=== PATIENT | male | born 1950 | race Caucasian/White ===

== ENCOUNTER 2023-12-18 17:58 | Emergency (ER) | payer MEDICARE, MEDICAID ==
[~2023-12-18] VITALS: Ht 167.6 cm; Wt 59.0 kg
[2023-12-18] MEDS ORDERED: KETOROLAC TROMETHAMINE INJ 30 MG/ML VIAL ONE (18:24)
[2023-12-18] MEDS ORDERED: LIDOCAINE HCL/PF 1% 30 ML SDV ONE (18:24)
[2023-12-18] MEDS: KETOROLAC TROMETHAMINE INJ 30 MG/ML VIAL IM ONE (18:45)
[2023-12-18] MEDS: LIDOCAINE HCL/PF 1% 30 ML VIAL TP ONE (18:50)
[2023-12-18] MEDS ORDERED: CEPH-570 PO (19:28)
[2023-12-18 22:21] VITALS: BP 140/76; TEMP 98.8; O2SAT 98
== END 2023-12-18 22:22 ==
LOC: ER 18:01
DX: L02.511 Cutaneous abscess of right hand (principal); L03.011 Cellulitis of right finger; I10 Essential (primary) hypertension; E11.9 Type 2 diabetes mellitus without complications; N40.0 Benign prostatic hyperplasia without lower urinary tract symptoms; F32.A Depression, unspecified; D64.9 Anemia, unspecified; E78.5 Hyperlipidemia, unspecified; E03.9 Hypothyroidism, unspecified
CPT/HCPCS: 26010; 73130; 96372; 99283; A6403; J1885; J3490

== ENCOUNTER 2024-03-10 13:14 | Emergency (ER) | payer MEDICARE, MEDICAID ==
[~2024-03-10] VITALS: Ht 167.6 cm; Wt 65.8 kg
[~2024-03-10 13:14] MED LIST: CEPH-570 PO
[2024-03-10] MEDS ORDERED: ONDANSETRON 4 MG TAB.RAPDIS SL ONE (14:30)
[2024-03-10] MEDS ORDERED: ONDANSETRON HCL/PF 4 MG/2 ML VIAL ONE (14:31)
[2024-03-10] MEDS: ONDANSETRON HCL/PF - ER 4 MG/2 ML VIAL IV ONE (14:45)
[2024-03-10] MEDS: DICYCLOMINE HCL 10 MG/5 ML UDC PO ONE (15:00)
[2024-03-10 15:04] LABS: APPEARANCE,URINE CLEAR (CLEAR); BILIRUBIN,URINE NEGATIVE (NEGATIVE); BLOOD, URINE NEGATIVE Ery/uL (NEGATIVE); COLOR,URINE YELLOW (YELLOW); KETONES,URINE NEGATIVE (NEGATIVE); LEUKOCYTE ESTERASE ,URINE NEGATIVE (NEGATIVE); NITRITE, URINE NEGATIVE (NEGATIVE); PROTEIN,URINE 2+ mg/dl (NEGATIVE); UGLUCOSE NEGATIVE (NEGATIVE); UROBILINOGEN,URINE 0.2 EU/dL (0.2)
[2024-03-10 15:05] LABS: BASOPHILS % (AUTO) 0.5 % (0.0-2.0); EOSINOPHILS # (AUTO) 0.4 K/uL (0.0-0.7); EOSINOPHILS % (AUTO) 4.4 % (0.0-6.0); HEMATOCRIT 39 % (39-51); HEMOGLOBIN 12.9 g/dL (13.5-17.5); LYMPHOCYTES # (AUTO) 1.6 K/uL (0.8-4.8); LYMPHOCYTES % (AUTO) 18.9 % (20.0-44.0); MEAN CORPUSCULAR HEMOGLOBIN 30 PG (26.0-33.0); MEAN CORPUSCULAR HGB CONC 33 g/dl (31.0-36.0); MEAN CORPUSCULAR VOLUME 91 fL (80-96); MONOCYTES # (AUTO) 0.9 K/uL (0.1-1.30); MONOCYTES % (AUTO) 10.4 % (2.0-12.0); NEUTROPHILS # (AUTO) 5.7 K/uL (1.8-8.9); NEUTROPHILS % (AUTO) 65.8 % (43.0-81.0); PLATELET COUNT (AUTO) 229 K/uL (150-450); RED BLOOD CELL COUNT(AUTO) 4.29 MIL/uL (4.5-6.0); WHITE BLOOD COUNT (AUTO) 8.7 K/uL (4.3-11.0)
[2024-03-10 15:07] LABS: ADD URINE CULTURE NO; BACTERIA,URINE Few /HPF (None Seen); HYALINE CASTS, URINE Few /LPF (None Seen); RBC,URINE 0-2 /HPF (0-2); SQUAMOUS EPITHELIAL CELL,UR None Seen /HPF (None Seen); WBC,URINE 0-2 /HPF (0-3)
[2024-03-10 15:31] LABS: CALCIUM, SERUM 8.9 mg/dL (8.5-10.1); CARBON DIOXIDE 25 mmol/L (21-32); CHLORIDE 105 mmol/L (98-107); GLUCOSE 125 mg/dL (74-106); SODIUM SERUM 136 mmol/L (136-145); UREA NITROGEN, BLOOD 30 mg/dL (7-18)
[2024-03-10 15:37] LABS: ALANINE AMINOTRANSFERASE 37 U/L (12-78); ALBUMIN 4.2 g/dL (3.4-5.0); ALKALINE PHOSPHATASE 123 U/L (46-116); ASPARTATE AMINOTRANSFERASE 24 U/L (15-37); BILIRUBIN,DIRECT 0.1 mg/dL (0.0-0.2); BILIRUBIN,TOTAL 0.3 mg/dL (0.2-1.0); LIPASE 135 U/L (16-77); TOTAL PROTEIN, SERUM 8.1 g/dL (6.4-8.2)
[2024-03-10 18:23] VITALS: BP 145/88; TEMP 98.3; O2SAT 97
== END 2024-03-10 18:53 ==
LOC: ER 13:20
DX: R10.84 Generalized abdominal pain (principal); R15.9 Full incontinence of feces; M79.672 Pain in left foot; E03.9 Hypothyroidism, unspecified; E11.9 Type 2 diabetes mellitus without complications; E78.5 Hyperlipidemia, unspecified; I10 Essential (primary) hypertension; K21.9 Gastro-esophageal reflux disease without esophagitis; N26.1 Atrophy of kidney (terminal); N40.1 Benign prostatic hyperplasia with lower urinary tract symptoms; F32.A Depression, unspecified
CPT/HCPCS: 99285; 74176; 96374; 73630; 85025; 80048; 83690; 80076; 81001; 36415; J2405

== ENCOUNTER 2024-05-18 13:46 | Inpatient (IN) | payer MEDICARE, OTHER ==
[~2024-05-18] VITALS: Ht 157.5 cm; Wt 75.3 kg
[2024-05-18] MEDS ORDERED: KETOROLAC TROMETHAMINE INJ 30 MG/ML VIAL ONE (15:43)
[2024-05-18] MEDS: KETOROLAC TROMETHAMINE INJ 30 MG/ML VIAL IM ONE (15:48)
[2024-05-18 16:52] LABS: APPEARANCE,URINE CLEAR (CLEAR); BILIRUBIN,URINE NEGATIVE (NEGATIVE); BLOOD, URINE NEGATIVE Ery/uL (NEGATIVE); COLOR,URINE YELLOW (YELLOW); KETONES,URINE NEGATIVE (NEGATIVE); LEUKOCYTE ESTERASE ,URINE NEGATIVE (NEGATIVE); NITRITE, URINE NEGATIVE (NEGATIVE); PH,URINE 6.5 (5.0-8.0); PROTEIN,URINE 2+ mg/dl (NEGATIVE); UGLUCOSE NEGATIVE (NEGATIVE); UROBILINOGEN,URINE 0.2 EU/dL (0.2)
[2024-05-18 16:56] LABS: ADD URINE CULTURE NO; BACTERIA,URINE None seen /HPF (None Seen); MUCUS,URINE Few /LPF (None Seen); RBC,URINE 0-2 /HPF (0-2); SQUAMOUS EPITHELIAL CELL,UR 0-2 /HPF (None Seen); WBC,URINE 0-2 /HPF (0-3)
[2024-05-18] MEDS ORDERED: TRAZ-182 PO (17:52)
[2024-05-18] MEDS ORDERED: MELA5TAB PO (17:52)
[2024-05-18] MEDS ORDERED: SERT50TA12 PO (17:52)
[2024-05-18] MEDS ORDERED: GABA-536 PO (17:52)
[2024-05-18] MEDS ORDERED: LORA-259 PO (17:52)
[2024-05-18] MEDS ORDERED: GLIP5TAB13 PO (17:52)
[2024-05-18] MEDS ORDERED: LEVO50TA8 PO (17:52)
[2024-05-18] MEDS ORDERED: ACET-73 PO (17:52)
[2024-05-18] MEDS ORDERED: ATOR20TA PO (17:52)
[2024-05-18] MEDS ORDERED: FOLI0.8T3 PO (17:52)
[2024-05-18] MEDS ORDERED: ONDANSETRON HCL/PF 4 MG/2 ML VIAL ONE (17:52)
[2024-05-18] MEDS ORDERED: TAMS-12 PO (17:52)
[2024-05-18] MEDS ORDERED: ZOLP5TAB8 PO (17:52)
[2024-05-18] MEDS ORDERED: HYDR-500 PO (17:52)
[2024-05-18] MEDS ORDERED: INSU100I30 SQ (17:52)
[2024-05-18] MEDS ORDERED: TRAM50TA2 PO (17:52)
[2024-05-18] MEDS ORDERED: AMLO-212 PO (17:52)
[2024-05-18] MEDS ORDERED: BUSP7.5T7 PO (17:52)
[2024-05-18] MEDS ORDERED: MORPHINE SULFATE INJ 4 MG/ML DISP.SYRIN ONE (17:53)
[2024-05-18] MEDS: ONDANSETRON HCL/PF 4 MG/2 ML VIAL IVP ONE (17:56)
[2024-05-18] MEDS: MORPHINE SULFATE INJ 2 MG/ML DISP.SYRIN IV ONE (17:57)
[2024-05-18 18:00] LABS: BASOPHILS % (AUTO) 0.4 % (0.0-2.0); EOSINOPHILS # (AUTO) 0.3 K/uL (0.0-0.7); EOSINOPHILS % (AUTO) 3.6 % (0.0-6.0); HEMATOCRIT 38 % (39-51); HEMOGLOBIN 12.9 g/dL (13.5-17.5); LYMPHOCYTES # (AUTO) 1.8 K/uL (0.8-4.8); LYMPHOCYTES % (AUTO) 23.8 % (20.0-44.0); MEAN CORPUSCULAR HEMOGLOBIN 30 PG (26.0-33.0); MEAN CORPUSCULAR HGB CONC 34 g/dl (31.0-36.0); MEAN CORPUSCULAR VOLUME 89 fL (80-96); MONOCYTES # (AUTO) 0.7 K/uL (0.1-1.30); MONOCYTES % (AUTO) 8.8 % (2.0-12.0); NEUTROPHILS # (AUTO) 4.7 K/uL (1.8-8.9); NEUTROPHILS % (AUTO) 63.4 % (43.0-81.0); PLATELET COUNT (AUTO) 176 K/uL (150-450); RED BLOOD CELL COUNT(AUTO) 4.25 MIL/uL (4.5-6.0); RED CELL DISTRIBUTION WIDTH 14.7 % (11.5-15.0); WHITE BLOOD COUNT (AUTO) 7.4 K/uL (4.3-11.0)
[2024-05-18 18:22] LABS: CALCIUM, SERUM 9.4 mg/dL (8.5-10.1); CREATININE 1.7 mg/dL (0.6-1.3); POTASSIUM 4.2 mmol/L (3.5-5.1)
[2024-05-18 18:30] LABS: PARTIAL THROMBOPLASTIN TIME 26.2 SEC (24.3-34.3); PROTHROMBIN TIME 10.6 SECS (9.2-11.1)
[2024-05-18] MEDS ORDERED: ONDANSETRON HCL/PF 4 MG/2 ML VIAL IVP PRN (20:00)
[2024-05-18] MEDS ORDERED: MAG HYDROX/AL HYDROX/SIMETH 30 ML UDC PO PRN (20:00)
[2024-05-18] MEDS ORDERED: MAGNESIUM HYDROXIDE 30 ML UDC PO PRN (20:00)
[2024-05-18] MEDS ORDERED: ACETAMINOPHEN 325 MG TABLET PO PRN (20:00)
[2024-05-18] MEDS ORDERED: DEXTROSE 50%-WATER 50 ML DISP.SYRIN IV PRN (20:30)
[2024-05-18 21:00] VITALS: BP 158/93; TEMP 98.2; O2SAT 95
[2024-05-18] MEDS: MORPHINE SULFATE INJ 2 MG/ML DISP.SYRIN IV PRN (22:04)
[2024-05-18] MEDS: BLOOD SUGAR DIAGNOSTIC 1 EACH STRIP IN SCH (22:20)
[2024-05-18] MEDS: INSULIN REGULAR, HUMAN 100 UNIT/ML 3 ML VIAL SQ PRN (22:23)
[2024-05-19] VITALS: BP 137/91; TEMP 98.2; O2SAT 94
[2024-05-19 04:00] VITALS: BP 138/90; TEMP 98.2; O2SAT 95
[2024-05-19 07:00] LABS: BASOPHILS % (AUTO) 0.6 % (0.0-2.0); EOSINOPHILS # (AUTO) 0.4 K/uL (0.0-0.7); EOSINOPHILS % (AUTO) 6.7 % (0.0-6.0); HEMATOCRIT 36 % (39-51); HEMOGLOBIN 12.2 g/dL (13.5-17.5); LYMPHOCYTES # (AUTO) 1.5 K/uL (0.8-4.8); LYMPHOCYTES % (AUTO) 25.7 % (20.0-44.0); MEAN CORPUSCULAR HEMOGLOBIN 30 PG (26.0-33.0); MEAN CORPUSCULAR HGB CONC 34 g/dl (31.0-36.0); MEAN CORPUSCULAR VOLUME 89 fL (80-96); MONOCYTES # (AUTO) 0.7 K/uL (0.1-1.30); MONOCYTES % (AUTO) 11.2 % (2.0-12.0); NEUTROPHILS # (AUTO) 3.4 K/uL (1.8-8.9); NEUTROPHILS % (AUTO) 55.8 % (43.0-81.0); PLATELET COUNT (AUTO) 173 K/uL (150-450); RED BLOOD CELL COUNT(AUTO) 4.08 MIL/uL (4.5-6.0); RED CELL DISTRIBUTION WIDTH 14.8 % (11.5-15.0)
[2024-05-19 07:44] LABS: CALCIUM, SERUM 9.1 mg/dL (8.5-10.1); CREATININE 1.5 mg/dL (0.6-1.3); MAGNESIUM 2.2 mg/dL (1.8-2.4); PHOSPHORUS 3.1 mg/dL (2.5-4.9); POTASSIUM 3.8 mmol/L (3.5-5.1)
[2024-05-19] MEDS: PANTOPRAZOLE 40 MG VIAL IV SCH (08:30)
[2024-05-19 08:38] VITALS: BP 161/86; TEMP 98.1; O2SAT 95
[2024-05-19] MEDS ORDERED: PANTOPRAZOLE 40 MG VIAL IV SCH (09:00)
[2024-05-19 09:11] LABS: THYROID STIMULATING HORMONE 4.69 uIU/mL (0.358-3.74)
[2024-05-19] MEDS: HYDROCODONE/APAP 5/325MG TABLET PO PRN (09:33)
[2024-05-19 12:00] VITALS: BP 161/86; TEMP 98.1; O2SAT 95
[2024-05-19 16:00] VITALS: BP 170/83; TEMP 98; O2SAT 95
[2024-05-19] MEDS ORDERED: LORAZEPAM 1 MG TABLET PO PRN (16:00)
[2024-05-19] MEDS ORDERED: ACETAMINOPHEN ES 500 MG TABLET PO PRN (16:00)
[2024-05-19] MEDS ORDERED: ZOLPIDEM TARTRATE 5 MG TABLET PO PRN (16:00)
[2024-05-19] MEDS ORDERED: TRAMADOL HCL 50 MG TABLET PO PRN (16:00)
[2024-05-19] MEDS: AMLODIPINE BESYLATE 5 MG TABLET PO SCH (16:11)
[2024-05-19] MEDS: busPIRone 5 MG TABLET PO SCH (16:11)
[2024-05-19] MEDS ORDERED: hydrOXYzine 10 MG TABLET PO PRN (16:30)
[2024-05-19] MEDS: hydrALAZINE HCL 25 MG TABLET PO PRN (16:45)
[2024-05-19] MEDS ORDERED: hydrALAZINE HCL 25 MG TABLET PO SCH (18:00)
[2024-05-19 20:00] VITALS: BP 184/85; TEMP 97.3; O2SAT 95
[2024-05-19] MEDS: ATORVASTATIN 10 MG TABLET PO SCH (21:41)
[2024-05-19] MEDS: TRAZODONE 50 MG TABLET PO SCH (21:41)
[2024-05-19] MEDS ORDERED: Medication Not On Formulary EA (Melatonin 5 MG) PO SCH (22:00)
[2024-05-20 04:00] VITALS: BP 130/90; TEMP 97.3; O2SAT 94
[2024-05-20 07:05] LABS: BASOPHILS % (AUTO) 0.5 % (0.0-2.0); EOSINOPHILS # (AUTO) 0.5 K/uL (0.0-0.7); HEMATOCRIT 34 % (39-51); HEMOGLOBIN 11.7 g/dL (13.5-17.5); LYMPHOCYTES # (AUTO) 1.5 K/uL (0.8-4.8); LYMPHOCYTES % (AUTO) 21.2 % (20.0-44.0); MEAN CORPUSCULAR HEMOGLOBIN 30 PG (26.0-33.0); MEAN CORPUSCULAR HGB CONC 34 g/dl (31.0-36.0); MEAN CORPUSCULAR VOLUME 88 fL (80-96); MONOCYTES # (AUTO) 0.9 K/uL (0.1-1.30); NEUTROPHILS # (AUTO) 4.3 K/uL (1.8-8.9); NEUTROPHILS % (AUTO) 59.3 % (43.0-81.0); PLATELET COUNT (AUTO) 181 K/uL (150-450); RED BLOOD CELL COUNT(AUTO) 3.88 MIL/uL (4.5-6.0); RED CELL DISTRIBUTION WIDTH 14.5 % (11.5-15.0); WHITE BLOOD COUNT (AUTO) 7.2 K/uL (4.3-11.0)
[2024-05-20 07:40] LABS: CALCIUM, SERUM 8.9 mg/dL (8.5-10.1); CREATININE 1.5 mg/dL (0.6-1.3); POTASSIUM 3.8 mmol/L (3.5-5.1)
[2024-05-20] MEDS: GABAPENTIN 400 MG CAPSULE PO SCH (08:35)
[2024-05-20] MEDS: LEVOTHYROXINE SODIUM 50 MCG TABLET PO SCH (08:35)
[2024-05-20] MEDS: glipiZIDE 5 MG TABLET PO SCH (08:36)
[2024-05-20] MEDS: TAMSULOSIN 0.4 MG CAP.SR.24H PO SCH (08:36)
[2024-05-20] MEDS: FOLIC ACID 1 MG TABLET PO SCH (08:36)
[2024-05-20] MEDS: SERTRALINE HCL 50 MG TABLET PO SCH (08:36)
[2024-05-20] MEDS: INSULIN GLARGINE, 100 UNIT/ML CARTRIDGE SQ SCH (08:37)
[2024-05-20 09:27] LABS: MAGNESIUM 2.2 mg/dL (1.8-2.4); PHOSPHORUS 3.9 mg/dL (2.5-4.9)
[2024-05-20 12:11] VITALS: BP 136/83; TEMP 98; O2SAT 95
[2024-05-21] MEDS ORDERED: PANTOPRAZOLE 40 MG TABLET.DR PO SCH (09:00)
== END 2024-05-20 17:25 | DRG 542 ==
LOC: ER 13:51 → MEDSG1 20:26
PROVIDERS: ATTEND Nurse Practitioner Acute Care
DX: M48.54XA Collapsed vertebra, not elsewhere classified, thoracic region, initial encounter for fracture (principal); N17.0 Acute kidney failure with tubular necrosis; D68.59 Other primary thrombophilia; I12.9 Hypertensive chronic kidney disease with stage 1 through stage 4 chronic kidney disease, or unspecified chronic kidney disease; N18.9 Chronic kidney disease, unspecified; E11.22 Type 2 diabetes mellitus with diabetic chronic kidney disease; E03.9 Hypothyroidism, unspecified; Z79.4 Long term (current) use of insulin; D64.9 Anemia, unspecified; E78.5 Hyperlipidemia, unspecified; G89.29 Other chronic pain; F32.A Depression, unspecified; E66.01 Morbid (severe) obesity due to excess calories; N40.0 Benign prostatic hyperplasia without lower urinary tract symptoms; F41.9 Anxiety disorder, unspecified; Z79.890 Hormone replacement therapy; Z79.899 Other long term (current) drug therapy; Z79.84 Long term (current) use of oral hypoglycemic drugs; M48.04 Spinal stenosis, thoracic region
CPT/HCPCS: 36415; 72131-TC; 80048-TC; 81001; 82962-TC; 83735-TC; 84100-TC; 84439-TC; 84443-TC; 85025-TC; 85730-TC; 87081-TC; 97110-TC; 97116-TC; 97530-TC; G0378; J1815; J1885; J2270; J2405; J2470; J7030

== ENCOUNTER 2024-09-17 19:26 | Inpatient (IN) | payer MEDICARE, OTHER ==
[~2024-09-17] VITALS: Ht 157.5 cm; Wt 78.0 kg
[~2024-09-17 19:26] MED LIST changes: +ACET-73 PO; +AMLO-212 PO; +ATOR20TA PO; +BUSP7.5T7 PO; -CEPH-570 PO; +FOLI0.8T3 PO; +GABA-536 PO; +GLIP5TAB13 PO; +HYDR-500 PO; +INSU100I30 SQ; +LEVO50TA8 PO; +LORA-259 PO; +MELA5TAB PO; +SERT50TA12 PO; +TAMS-12 PO; +TRAM50TA2 PO; +TRAZ-182 PO; +ZOLP5TAB8 PO
[2024-09-17] MEDS ORDERED: LIDOCAINE 5% (PATCH) 1 EA PATCH TP ONE (19:58)
[2024-09-17] MEDS ORDERED: KETOROLAC TROMETHAMINE 15 MG/ML VIAL ONE (19:58)
[2024-09-17] MEDS ORDERED: METHOCARBAMOL (500MG) 500 MG TABLET ONE (19:59)
[2024-09-17 20:02] LABS: BASOPHILS # (AUTO) 0.1 K/uL (0.0-0.2); BASOPHILS % (AUTO) 0.7 % (0.0-2.0); EOSINOPHILS # (AUTO) 0.4 K/uL (0.0-0.7); EOSINOPHILS % (AUTO) 4.9 % (0.0-6.0); HEMATOCRIT 39 % (39-51); HEMOGLOBIN 13.1 g/dL (13.5-17.5); LYMPHOCYTES # (AUTO) 2.1 K/uL (0.8-4.8); LYMPHOCYTES % (AUTO) 24.1 % (20.0-44.0); MEAN CORPUSCULAR HEMOGLOBIN 29 PG (26.0-33.0); MEAN CORPUSCULAR HGB CONC 34 g/dl (31.0-36.0); MEAN CORPUSCULAR VOLUME 87 fL (80-96); MONOCYTES # (AUTO) 0.8 K/uL (0.1-1.30); NEUTROPHILS # (AUTO) 5.3 K/uL (1.8-8.9); NEUTROPHILS % (AUTO) 61.3 % (43.0-81.0); PLATELET COUNT (AUTO) 233 K/uL (150-450); RED BLOOD CELL COUNT(AUTO) 4.47 MIL/uL (4.5-6.0); WHITE BLOOD COUNT (AUTO) 8.7 K/uL (4.3-11.0)
[2024-09-17 20:16] LABS: CREATININE 1.9 mg/dL (0.6-1.3); POTASSIUM 3.9 mmol/L (3.5-5.1)
[2024-09-17 20:22] LABS: ALBUMIN 4.1 g/dL (3.4-5.0); BILIRUBIN,DIRECT 0.1 mg/dL (0.0-0.2); BILIRUBIN,TOTAL 0.3 mg/dL (0.2-1.0); TOTAL PROTEIN, SERUM 7.7 g/dL (6.4-8.2)
[2024-09-17] MEDS: IV NS 0.9% 1,000 ML BAG IV ONE (20:28)
[2024-09-17] MEDS: LIDOCAINE 5% (PATCH) 1 EA PATCH TP SCH (20:29)
[2024-09-17] MEDS: METHOCARBAMOL (750MG) 750 MG TABLET PO SCH (20:29)
[2024-09-17] MEDS: KETOROLAC TROMETHAMINE 15 MG/ML VIAL IV ONE (20:29)
[2024-09-17] MEDS ORDERED: MORPHINE SULFATE INJ 2 MG/ML DISP.SYRIN ONE (21:17)
[2024-09-17] MEDS: MORPHINE SULFATE INJ 2 MG/ML DISP.SYRIN IV ONE (21:23)
[2024-09-17] MEDS ORDERED: LORAZEPAM 1 MG TABLET PO PRN (23:00)
[2024-09-17] MEDS ORDERED: MAGNESIUM HYDROXIDE 30 ML UDC PO PRN (23:00)
[2024-09-17] MEDS ORDERED: ACETAMINOPHEN 325 MG TABLET PO PRN (23:00)
[2024-09-17 23:30] VITALS: BP 161/97; TEMP 97.9; O2SAT 98
[2024-09-17] MEDS ORDERED: DEXTROSE 50%-WATER 50 ML DISP.SYRIN IV PRN (23:30)
[2024-09-18] MEDS: BLOOD SUGAR DIAGNOSTIC 1 EACH STRIP VI SCH (00:01)
[2024-09-18] MEDS: INSULIN GLARGINE, 100 UNIT/ML CARTRIDGE SQ SCH (00:03)
[2024-09-18 06:34] LABS: BASOPHILS # (AUTO) 0.1 K/uL (0.0-0.2); BASOPHILS % (AUTO) 0.7 % (0.0-2.0); EOSINOPHILS # (AUTO) 0.6 K/uL (0.0-0.7); EOSINOPHILS % (AUTO) 7.8 % (0.0-6.0); HEMATOCRIT 39 % (39-51); HEMOGLOBIN 13.1 g/dL (13.5-17.5); LYMPHOCYTES # (AUTO) 2.4 K/uL (0.8-4.8); LYMPHOCYTES % (AUTO) 31.5 % (20.0-44.0); MEAN CORPUSCULAR HEMOGLOBIN 29 PG (26.0-33.0); MEAN CORPUSCULAR HGB CONC 34 g/dl (31.0-36.0); MEAN CORPUSCULAR VOLUME 87 fL (80-96); MONOCYTES # (AUTO) 0.9 K/uL (0.1-1.30); MONOCYTES % (AUTO) 11.3 % (2.0-12.0); NEUTROPHILS # (AUTO) 3.7 K/uL (1.8-8.9); NEUTROPHILS % (AUTO) 48.7 % (43.0-81.0); PLATELET COUNT (AUTO) 231 K/uL (150-450); RED BLOOD CELL COUNT(AUTO) 4.46 MIL/uL (4.5-6.0); RED CELL DISTRIBUTION WIDTH 14.3 % (11.5-15.0); WHITE BLOOD COUNT (AUTO) 7.6 K/uL (4.3-11.0)
[2024-09-18] MEDS: INSULIN REGULAR, HUMAN 100 UNIT/ML 3 ML VIAL SQ PRN (06:40)
[2024-09-18 06:57] LABS: BILIRUBIN,TOTAL 0.3 mg/dL (0.2-1.0); CALCIUM, SERUM 8.8 mg/dL (8.5-10.1); CREATININE 1.5 mg/dL (0.6-1.3); MAGNESIUM 2.4 mg/dL (1.8-2.4); PHOSPHORUS 3.4 mg/dL (2.5-4.9); POTASSIUM 3.8 mmol/L (3.5-5.1); TOTAL PROTEIN, SERUM 7.8 g/dL (6.4-8.2)
[2024-09-18 07:30] VITALS: BP 132/95; TEMP 97.5; O2SAT 96
[2024-09-18 07:49] VITALS: BP 132/95; TEMP 97.5; O2SAT 96
[2024-09-18] MEDS: LEVOTHYROXINE SODIUM 50 MCG TABLET PO SCH (08:01)
[2024-09-18] MEDS: MORPHINE SULFATE INJ 2 MG/ML DISP.SYRIN IV PRN (08:03)
[2024-09-18] MEDS ORDERED: QUET25TA PO (08:17)
[2024-09-18] MEDS ORDERED: ERGO500093 PO (08:17)
[2024-09-18] MEDS ORDERED: TIZA-180 PO (08:17)
[2024-09-18] MEDS ORDERED: AMLO-213 PO (08:17)
[2024-09-18] MEDS ORDERED: BUSP10TA3 PO (08:17)
[2024-09-18] MEDS ORDERED: POLY17PO4 PO (08:17)
[2024-09-18] MEDS ORDERED: ACET325T53 PO (08:17)
[2024-09-18] MEDS ORDERED: DICL100G34 TP (08:17)
[2024-09-18] MEDS ORDERED: SENN8.6T19 PO (08:17)
[2024-09-18] MEDS ORDERED: ENOX40DI SQ (08:17)
[2024-09-18] MEDS ORDERED: CALC200V NS (08:17)
[2024-09-18] MEDS ORDERED: CLON0.1T PO (08:17)
[2024-09-18] MEDS ORDERED: HYDR-4303 PO (08:17)
[2024-09-18] MEDS: busPIRone 5 MG TABLET PO SCH ×2 (08:43→16:28)
[2024-09-18] MEDS: DOCUSATE SODIUM LIQ 100 MG/10 ML UDC PO SCH (08:43)
[2024-09-18] MEDS: GABAPENTIN 400 MG CAPSULE PO SCH (08:43)
[2024-09-18] MEDS: AMLODIPINE BESYLATE 5 MG TABLET PO SCH (08:44)
[2024-09-18] MEDS: TAMSULOSIN 0.4 MG CAP.SR.24H PO SCH (08:44)
[2024-09-18] MEDS: SERTRALINE HCL 50 MG TABLET PO SCH (08:44)
[2024-09-18] MEDS: HEPARIN SODIUM, PORCINE 5000 UNITS/1 ML VIAL SQ SCH (08:48)
[2024-09-18] MEDS: POLYETHYLENE GLYCOL 3350 17 GM POWD.PACK PO SCH (08:57)
[2024-09-18] MEDS ORDERED: ACETAMINOPHEN 325 MG TABLET PO PRN (13:00)
[2024-09-18] MEDS ORDERED: CLONIDINE HCL 0.1 MG TABLET PO PRN (13:00)
[2024-09-18] MEDS ORDERED: busPIRone HCL 10 MG TABLET PO SCH (13:00)
[2024-09-18] MEDS ORDERED: ZOLPIDEM TARTRATE 5 MG TABLET PO PRN (13:00)
[2024-09-18] MEDS ORDERED: hydrOXYzine 10 MG TABLET PO PRN (14:00)
[2024-09-18 16:00] VITALS: BP 159/84; TEMP 98.1; O2SAT 94
[2024-09-18] MEDS: SENNOSIDES 8.6 MG TABLET PO SCH (16:28)
[2024-09-18] MEDS: QUETIAPINE FUMARATE 25 MG TABLET PO SCH (16:28)
[2024-09-18] MEDS: TIZANIDINE HCL 4 MG TABLET PO PRN (16:39)
[2024-09-18 20:00] VITALS: BP 145/87; TEMP 98.1; O2SAT 97
[2024-09-18] MEDS: ATORVASTATIN 10 MG TABLET PO SCH (21:32)
[2024-09-18] MEDS: TRAZODONE 50 MG TABLET PO SCH (21:32)
[2024-09-18] MEDS: *INSULIN REGULAR(HUMULIN R)HUM 100 UNIT/ML VIAL SQ PRN (21:54)
[2024-09-19 06:20] LABS: BASOPHILS % (AUTO) 0.2 % (0.0-2.0); EOSINOPHILS # (AUTO) 0.5 K/uL (0.0-0.7); EOSINOPHILS % (AUTO) 4.9 % (0.0-6.0); HEMATOCRIT 43 % (39-51); HEMOGLOBIN 14.4 g/dL (13.5-17.5); LYMPHOCYTES # (AUTO) 1.8 K/uL (0.8-4.8); LYMPHOCYTES % (AUTO) 17.3 % (20.0-44.0); MEAN CORPUSCULAR HEMOGLOBIN 29 PG (26.0-33.0); MEAN CORPUSCULAR HGB CONC 33 g/dl (31.0-36.0); MEAN CORPUSCULAR VOLUME 87 fL (80-96); MONOCYTES # (AUTO) 1.2 K/uL (0.1-1.30); NEUTROPHILS % (AUTO) 66.6 % (43.0-81.0); PLATELET COUNT (AUTO) 233 K/uL (150-450); RED CELL DISTRIBUTION WIDTH 14.1 % (11.5-15.0); WHITE BLOOD COUNT (AUTO) 10.6 K/uL (4.3-11.0)
[2024-09-19 06:49] LABS: CALCIUM, SERUM 9.2 mg/dL (8.5-10.1); CREATININE 1.5 mg/dL (0.6-1.3); MAGNESIUM 2.4 mg/dL (1.8-2.4); PHOSPHORUS 3.8 mg/dL (2.5-4.9); POTASSIUM 3.8 mmol/L (3.5-5.1)
[2024-09-19 08:00] VITALS: BP 149/85; TEMP 97.9; O2SAT 95
[2024-09-19] MEDS: FOLIC ACID 1 MG TABLET PO SCH (09:18)
[2024-09-19] MEDS: AMLODIPINE BESYLATE 10 MG TABLET PO SCH (09:19)
[2024-09-19] MEDS: POLYETHYLENE GLYCOL 3350 17 GM POWD.PACK PO SCH (09:20)
[2024-09-19] MEDS: INSULIN GLARGINE, 100 UNIT/ML CARTRIDGE SQ SCH (09:22)
[2024-09-19 13:49] LABS: APPEARANCE,URINE CLEAR (CLEAR); BILIRUBIN,URINE NEGATIVE (NEGATIVE); BLOOD, URINE NEGATIVE Ery/uL (NEGATIVE); COLOR,URINE YELLOW (YELLOW); KETONES,URINE NEGATIVE (NEGATIVE); LEUKOCYTE ESTERASE ,URINE NEGATIVE (NEGATIVE); NITRITE, URINE NEGATIVE (NEGATIVE); PROTEIN,URINE 2+ mg/dl (NEGATIVE); UGLUCOSE NEGATIVE (NEGATIVE); UROBILINOGEN,URINE 0.2 EU/dL (0.2)
[2024-09-19 13:51] LABS: CREATININE, URINE 144.1 MG/DL (30.0-125.0); URINE TOTAL PROTEIN 142.3 mg/dL (0-11.9)
[2024-09-19 14:05] LABS: ADD URINE CULTURE YES; BACTERIA,URINE 2+ /HPF (None Seen); RBC,URINE 0-2 /HPF (0-2); SQUAMOUS EPITHELIAL CELL,UR 0-2 /HPF (None Seen); WBC,URINE 0-2 /HPF (0-3)
[2024-09-19 16:00] VITALS: BP 114/77; TEMP 97.9; O2SAT 95
[2024-09-19 16:16] LABS: EOSINOPHIL,URINE None Seen; SPERM,URINE Moderate /HPF (None Seen)
[2024-09-19] MEDS: ACETAMINOPHEN 325 MG TABLET PO SCH (20:24)
[2024-09-19] MEDS: ONDANSETRON HCL/PF 4 MG/2 ML VIAL IVP PRN (20:51)
[2024-09-19 21:33] VITALS: BP 162/95; TEMP 98.8; O2SAT 92
[2024-09-20 06:34] LABS: BASOPHILS % (AUTO) 0.2 % (0.0-2.0); EOSINOPHILS # (AUTO) 0.4 K/uL (0.0-0.7); EOSINOPHILS % (AUTO) 3.9 % (0.0-6.0); HEMATOCRIT 39 % (39-51); HEMOGLOBIN 12.8 g/dL (13.5-17.5); LYMPHOCYTES # (AUTO) 2.1 K/uL (0.8-4.8); LYMPHOCYTES % (AUTO) 23.5 % (20.0-44.0); MEAN CORPUSCULAR HEMOGLOBIN 28 PG (26.0-33.0); MEAN CORPUSCULAR HGB CONC 32 g/dl (31.0-36.0); MEAN CORPUSCULAR VOLUME 87 fL (80-96); MONOCYTES # (AUTO) 1.1 K/uL (0.1-1.30); MONOCYTES % (AUTO) 11.8 % (2.0-12.0); NEUTROPHILS # (AUTO) 5.5 K/uL (1.8-8.9); NEUTROPHILS % (AUTO) 60.6 % (43.0-81.0); PLATELET COUNT (AUTO) 213 K/uL (150-450); RED BLOOD CELL COUNT(AUTO) 4.51 MIL/uL (4.5-6.0); RED CELL DISTRIBUTION WIDTH 13.9 % (11.5-15.0); WHITE BLOOD COUNT (AUTO) 9.1 K/uL (4.3-11.0)
[2024-09-20 07:11] LABS: ALBUMIN 3.9 g/dL (3.4-5.0); BILIRUBIN,TOTAL 0.5 mg/dL (0.2-1.0); CREATININE 1.8 mg/dL (0.6-1.3); MAGNESIUM 2.6 mg/dL (1.8-2.4); PHOSPHORUS 3.6 mg/dL (2.5-4.9); POTASSIUM 4.1 mmol/L (3.5-5.1); TOTAL PROTEIN, SERUM 7.9 g/dL (6.4-8.2)
[2024-09-20 08:00] VITALS: BP 149/81; TEMP 97.5; O2SAT 95
[2024-09-20 16:00] VITALS: BP 104/62; TEMP 97.5; O2SAT 95
[2024-09-20 20:00] VITALS: BP 94/56; TEMP 97.8; O2SAT 93
[2024-09-20] MEDS: MUPIROCIN OINT 2% 22 GM TUBE NS SCH (21:00)
[2024-09-21 06:46] LABS: BASOPHILS % (AUTO) 0.2 % (0.0-2.0); EOSINOPHILS # (AUTO) 0.6 K/uL (0.0-0.7); EOSINOPHILS % (AUTO) 7.5 % (0.0-6.0); HEMATOCRIT 38 % (39-51); HEMOGLOBIN 12.8 g/dL (13.5-17.5); LYMPHOCYTES # (AUTO) 1.4 K/uL (0.8-4.8); LYMPHOCYTES % (AUTO) 19.1 % (20.0-44.0); MEAN CORPUSCULAR HEMOGLOBIN 29 PG (26.0-33.0); MEAN CORPUSCULAR HGB CONC 33 g/dl (31.0-36.0); MEAN CORPUSCULAR VOLUME 87 fL (80-96); MONOCYTES # (AUTO) 0.8 K/uL (0.1-1.30); MONOCYTES % (AUTO) 10.2 % (2.0-12.0); NEUTROPHILS # (AUTO) 4.7 K/uL (1.8-8.9); PLATELET COUNT (AUTO) 206 K/uL (150-450); RED BLOOD CELL COUNT(AUTO) 4.38 MIL/uL (4.5-6.0); RED CELL DISTRIBUTION WIDTH 14.2 % (11.5-15.0); WHITE BLOOD COUNT (AUTO) 7.5 K/uL (4.3-11.0)
[2024-09-21 07:22] LABS: CALCIUM, SERUM 9.1 mg/dL (8.5-10.1); CREATININE 1.8 mg/dL (0.6-1.3); MAGNESIUM 2.6 mg/dL (1.8-2.4); PHOSPHORUS 2.9 mg/dL (2.5-4.9); POTASSIUM 3.8 mmol/L (3.5-5.1)
[2024-09-21 08:00] VITALS: BP 136/74; TEMP 98.3; O2SAT 95
[2024-09-21 13:07] LABS: PTH, INTACT 74 pg/mL (15-65)
[2024-09-21 16:00] VITALS: BP 141/73; TEMP 97.9; O2SAT 97
[2024-09-21 20:00] VITALS: BP 157/82; TEMP 98.1; O2SAT 97
[2024-09-22 08:00] VITALS: BP 159/95; TEMP 97.5; O2SAT 98
[2024-09-22 11:22] LABS: BASOPHILS % (AUTO) 0.6 % (0.0-2.0); EOSINOPHILS # (AUTO) 0.5 K/uL (0.0-0.7); EOSINOPHILS % (AUTO) 6.5 % (0.0-6.0); HEMATOCRIT 39 % (39-51); HEMOGLOBIN 12.9 g/dL (13.5-17.5); LYMPHOCYTES # (AUTO) 1.7 K/uL (0.8-4.8); LYMPHOCYTES % (AUTO) 23.5 % (20.0-44.0); MEAN CORPUSCULAR HEMOGLOBIN 29 PG (26.0-33.0); MEAN CORPUSCULAR HGB CONC 34 g/dl (31.0-36.0); MEAN CORPUSCULAR VOLUME 87 fL (80-96); MONOCYTES # (AUTO) 0.8 K/uL (0.1-1.30); MONOCYTES % (AUTO) 11.2 % (2.0-12.0); NEUTROPHILS # (AUTO) 4.2 K/uL (1.8-8.9); NEUTROPHILS % (AUTO) 58.2 % (43.0-81.0); PLATELET COUNT (AUTO) 228 K/uL (150-450); RED BLOOD CELL COUNT(AUTO) 4.45 MIL/uL (4.5-6.0); RED CELL DISTRIBUTION WIDTH 14.3 % (11.5-15.0); WHITE BLOOD COUNT (AUTO) 7.2 K/uL (4.3-11.0)
[2024-09-22 11:45] LABS: CALCIUM, SERUM 9.2 mg/dL (8.5-10.1); CREATININE 1.6 mg/dL (0.6-1.3); MAGNESIUM 2.5 mg/dL (1.8-2.4); PHOSPHORUS 2.2 mg/dL (2.5-4.9)
[2024-09-22 16:00] VITALS: BP 156/69; TEMP 98.2; O2SAT 93
[2024-09-22] MEDS: K PHOS NEUTRAL 250 MG TABLET PO ONE (16:04)
[2024-09-22 20:00] VITALS: BP 145/84; TEMP 98.1; O2SAT 95
[2024-09-23 07:00] VITALS: BP 163/98; TEMP 97.5; O2SAT 97
[2024-09-23 16:00] VITALS: BP 146/81; TEMP 98.1; O2SAT 95
[2024-09-23 20:00] VITALS: BP 137/76; TEMP 97.9; O2SAT 95
[2024-09-23 20:23] LABS: BASOPHILS # (AUTO) 0.1 K/uL (0.0-0.2); BASOPHILS % (AUTO) 1.2 % (0.0-2.0); EOSINOPHILS # (AUTO) 0.5 K/uL (0.0-0.7); EOSINOPHILS % (AUTO) 6.7 % (0.0-6.0); HEMATOCRIT 39 % (39-51); HEMOGLOBIN 12.7 g/dL (13.5-17.5); LYMPHOCYTES # (AUTO) 1.8 K/uL (0.8-4.8); LYMPHOCYTES % (AUTO) 24.1 % (20.0-44.0); MEAN CORPUSCULAR HEMOGLOBIN 29 PG (26.0-33.0); MEAN CORPUSCULAR HGB CONC 33 g/dl (31.0-36.0); MEAN CORPUSCULAR VOLUME 89 fL (80-96); MONOCYTES # (AUTO) 0.8 K/uL (0.1-1.30); MONOCYTES % (AUTO) 11.1 % (2.0-12.0); NEUTROPHILS # (AUTO) 4.2 K/uL (1.8-8.9); NEUTROPHILS % (AUTO) 56.9 % (43.0-81.0); PLATELET COUNT (AUTO) 222 K/uL (150-450); RED BLOOD CELL COUNT(AUTO) 4.38 MIL/uL (4.5-6.0); RED CELL DISTRIBUTION WIDTH 14.3 % (11.5-15.0); WHITE BLOOD COUNT (AUTO) 7.4 K/uL (4.3-11.0)
[2024-09-23 21:06] LABS: CALCIUM, SERUM 8.8 mg/dL (8.5-10.1); CREATININE 1.6 mg/dL (0.6-1.3); MAGNESIUM 2.5 mg/dL (1.8-2.4); PHOSPHORUS 3.5 mg/dL (2.5-4.9); POTASSIUM 3.9 mmol/L (3.5-5.1)
[2024-09-24 07:00] VITALS: BP 167/88; TEMP 97.5; O2SAT 96
[2024-09-24 16:00] VITALS: BP 113/72; TEMP 98.1; O2SAT 95
[2024-09-24 16:18] LABS: INR 0.98 (0.91-1.10); PARTIAL THROMBOPLASTIN TIME 26.5 SEC (24.3-34.3); PROTHROMBIN TIME 10.4 SECS (9.2-11.1)
[2024-09-24 20:00] VITALS: BP_SYST 156; BP_SYST 163; BP_DIAS 82; BP_DIAS 84; TEMP 98.2; O2SAT 96
[2024-09-24] MEDS: Potassium Chloride 20 MEQ in IV NS 0.9% 1,000 ML IV PRN (23:41)
[2024-09-25 06:07] LABS: *SPE ALBUMIN 3.4 g/dL (2.9-4.4); *SPE ALPHA-1-GLOBULIN 0.3 g/dL (0.0-0.4); *SPE ALPHA-2-GLOBULIN 0.9 g/dL (0.4-1.0); *SPE BETA GLOBULIN 1.3 g/dL (0.7-1.3); *SPE GLOBULIN, TOTAL 3.4 g/dL (2.2-3.9); *SPE M-SPIKE Not Observed g/dL (Not Observed); *SPE PROTEIN TOTAL 6.8 g/dL (6.0-8.5); *SPEGAMMA GLOBULIN 0.9 g/dL (0.4-1.8)
[2024-09-25] MEDS ORDERED: ANESTHESIA TRAY IN PYXIS 1 EA TRAY MC ONE ×2 (07:55→17:55)
[2024-09-25] MEDS ORDERED: HEMOSTATIC MATRIX 8 ML 1 EACH PAD MC ONE (07:55)
[2024-09-25] MEDS ORDERED: LIDOCAINE 0.5%-EPI 1:200,000 50 ML VIAL ONE (07:56)
[2024-09-25] MEDS ORDERED: CEFAZOLIN 1 GM ONE (07:56)
[2024-09-25] MEDS ORDERED: TRIAMCINOLONE ACETONIDE SUSP 40 MG/ML 1 ML ONE (07:56)
[2024-09-25 08:00] VITALS: BP 151/77; TEMP 97.9; O2SAT 97
[2024-09-25 08:55] LABS: BASOPHILS # (AUTO) 0.1 K/uL (0.0-0.2); BASOPHILS % (AUTO) 0.7 % (0.0-2.0); EOSINOPHILS # (AUTO) 0.4 K/uL (0.0-0.7); EOSINOPHILS % (AUTO) 6.2 % (0.0-6.0); HEMATOCRIT 39 % (39-51); LYMPHOCYTES # (AUTO) 1.7 K/uL (0.8-4.8); LYMPHOCYTES % (AUTO) 23.1 % (20.0-44.0); MEAN CORPUSCULAR HEMOGLOBIN 29 PG (26.0-33.0); MEAN CORPUSCULAR HGB CONC 33 g/dl (31.0-36.0); MEAN CORPUSCULAR VOLUME 87 fL (80-96); MONOCYTES # (AUTO) 0.7 K/uL (0.1-1.30); MONOCYTES % (AUTO) 10.2 % (2.0-12.0); NEUTROPHILS # (AUTO) 4.3 K/uL (1.8-8.9); NEUTROPHILS % (AUTO) 59.8 % (43.0-81.0); PLATELET COUNT (AUTO) 230 K/uL (150-450); RED BLOOD CELL COUNT(AUTO) 4.47 MIL/uL (4.5-6.0); RED CELL DISTRIBUTION WIDTH 13.9 % (11.5-15.0); WHITE BLOOD COUNT (AUTO) 7.2 K/uL (4.3-11.0)
[2024-09-25 09:01] LABS: CALCIUM, SERUM 8.8 mg/dL (8.5-10.1); CREATININE 1.6 mg/dL (0.6-1.3); POTASSIUM 4.2 mmol/L (3.5-5.1)
[2024-09-25] MEDS ORDERED: ALBUMIN 5% 500 ML IV ONE (14:09)
[2024-09-25] MEDS ORDERED: LIDOCAINE 2% JEL UROJET 10 ML MM ONE (14:09)
[2024-09-25] MEDS ORDERED: Magnesium 1 GM/2 ML VIAL ONE ×2 (14:10→15:53)
[2024-09-25] MEDS ORDERED: HYDROMORPHONE INJ 2 MG/ML DISP.SYRIN ONE (14:10)
[2024-09-25] MEDS ORDERED: FAMOTIDINE/PF INJ 20 MG/2 ML VIAL IV ONE (14:10)
[2024-09-25] MEDS ORDERED: FENTANYL PF 100MCG/2ML AMPUL ONE (14:10)
[2024-09-25] MEDS ORDERED: BUPIVACAINE MPF W/EPI 0.25% 30 ML VIAL ONE (14:22)
[2024-09-25] MEDS ORDERED: PROPOFOL 100 ML ONE (15:37)
[2024-09-25] MEDS ORDERED: LABETALOL HCL IV 100MG VIAL ONE (15:56)
[2024-09-25] MEDS ORDERED: Potassium Chloride 20 MEQ in IV NS 0.9% 1,000 ML IV SCH (16:00)
[2024-09-25] MEDS ORDERED: HYDROMORPHONE 1 MG/1 ML DISP.SYRIN ONE (19:59)
[2024-09-25 20:00] VITALS: BP 149/97; TEMP 97.9; O2SAT 96
[2024-09-25] MEDS ORDERED: ONDANSETRON HCL/PF 4 MG/2 ML VIAL IVP PRN (20:00)
[2024-09-25 20:40] VITALS: BP 134/103; TEMP 97.2; O2SAT 94
[2024-09-25] MEDS: Potassium Chloride 20 MEQ in IV NS 0.9% 1,000 ML IV SCH (21:16)
[2024-09-25 22:00] VITALS: BP 159/91; TEMP 98; O2SAT 95
[2024-09-25] MEDS ORDERED: BISACODYL SUPP (10 MG) 10 MG/SUPP.RECT SUPP.RECT RC PRN (22:00)
[2024-09-25] MEDS: ANCEF 1 GM/50 ML D5W IV SCH (22:43)
[2024-09-26] MEDS: oxyCODONE/APAP (5/325 MG) 1 UDTAB TABLET PO PRN (02:33)
[2024-09-26] MEDS: ACETAMINOPHEN ES 500 MG TABLET PO PRN (07:48)
[2024-09-26 08:00] VITALS: BP 176/103; TEMP 99.3; O2SAT 93
[2024-09-26] MEDS: dexaMETHasone SOD PHOSPHATE 10 MG/ML VIAL IV SCH (09:03)
[2024-09-26] MEDS: CYCLOBENZAPRINE 10 MG TABLET PO PRN (09:30)
[2024-09-26] MEDS: HYDROCODONE/APAP 5/325MG TABLET PO PRN (09:43)
[2024-09-26 16:00] VITALS: BP 156/81; TEMP 98.1; O2SAT 94
[2024-09-26 16:13] VITALS: TEMP 98.1
[2024-09-26 20:00] VITALS: BP 144/98; TEMP 98.1; O2SAT 95
[2024-09-26 22:00] VITALS: BP 144/98; TEMP 98.1; O2SAT 95
[2024-09-27] VITALS: BP 144/98; TEMP 98.1; O2SAT 95
[2024-09-27 04:00] VITALS: BP 144/84; TEMP 97.7; O2SAT 96
[2024-09-27 07:54] LABS: CALCIUM, SERUM 8.7 mg/dL (8.5-10.1); CREATININE 1.5 mg/dL (0.6-1.3); POTASSIUM 4.7 mmol/L (3.5-5.1)
[2024-09-27 08:00] VITALS: BP 117/79; TEMP 98.4; O2SAT 95
[2024-09-27 08:02] VITALS: BP 117/79; TEMP 98.4; O2SAT 95
[2024-09-27 08:09] LABS: BASOPHILS % (AUTO) 0.3 % (0.0-2.0); EOSINOPHILS % (AUTO) 0.1 % (0.0-6.0); HEMATOCRIT 36 % (39-51); HEMOGLOBIN 11.1 g/dL (13.5-17.5); LYMPHOCYTES # (AUTO) 1.1 K/uL (0.8-4.8); LYMPHOCYTES % (AUTO) 7.3 % (20.0-44.0); MEAN CORPUSCULAR HEMOGLOBIN 28 PG (26.0-33.0); MEAN CORPUSCULAR HGB CONC 31 g/dl (31.0-36.0); MEAN CORPUSCULAR VOLUME 92 fL (80-96); MONOCYTES # (AUTO) 1.2 K/uL (0.1-1.30); MONOCYTES % (AUTO) 8.3 % (2.0-12.0); NEUTROPHILS # (AUTO) 12.2 K/uL (1.8-8.9); PLATELET COUNT (AUTO) 198 K/uL (150-450); RED BLOOD CELL COUNT(AUTO) 3.91 MIL/uL (4.5-6.0); RED CELL DISTRIBUTION WIDTH 15.2 % (11.5-15.0); WHITE BLOOD COUNT (AUTO) 14.5 K/uL (4.3-11.0)
[2024-09-27] MEDS: HEPARIN SODIUM, PORCINE 5000 UNITS/1 ML VIAL SQ SCH (09:31)
[2024-09-27] MEDS ORDERED: CYCLOBENZAPRINE 10 MG TABLET PO PRN (11:00)
[2024-09-27 16:00] VITALS: BP 149/73; TEMP 97.9; O2SAT 96
[2024-09-27 20:00] VITALS: BP_SYST 142; BP_SYST 148; BP_DIAS 88; TEMP 98.4; O2SAT 94
[2024-09-28 06:27] LABS: BASOPHILS # (AUTO) 0.1 K/uL (0.0-0.2); BASOPHILS % (AUTO) 0.7 % (0.0-2.0); EOSINOPHILS # (AUTO) 0.2 K/uL (0.0-0.7); EOSINOPHILS % (AUTO) 2.1 % (0.0-6.0); HEMATOCRIT 35 % (39-51); HEMOGLOBIN 11.7 g/dL (13.5-17.5); LYMPHOCYTES # (AUTO) 2.3 K/uL (0.8-4.8); LYMPHOCYTES % (AUTO) 22.2 % (20.0-44.0); MEAN CORPUSCULAR HEMOGLOBIN 29 PG (26.0-33.0); MEAN CORPUSCULAR HGB CONC 34 g/dl (31.0-36.0); MEAN CORPUSCULAR VOLUME 88 fL (80-96); MONOCYTES # (AUTO) 1.1 K/uL (0.1-1.30); MONOCYTES % (AUTO) 10.8 % (2.0-12.0); NEUTROPHILS # (AUTO) 6.7 K/uL (1.8-8.9); NEUTROPHILS % (AUTO) 64.2 % (43.0-81.0); PLATELET COUNT (AUTO) 214 K/uL (150-450); RED BLOOD CELL COUNT(AUTO) 3.96 MIL/uL (4.5-6.0); RED CELL DISTRIBUTION WIDTH 14.4 % (11.5-15.0); WHITE BLOOD COUNT (AUTO) 10.4 K/uL (4.3-11.0)
[2024-09-28 06:42] LABS: CALCIUM, SERUM 9.1 mg/dL (8.5-10.1); CREATININE 1.6 mg/dL (0.6-1.3)
[2024-09-28 07:00] VITALS: BP 158/81; TEMP 97.3; O2SAT 96
[2024-09-28 16:00] VITALS: BP 152/87; TEMP 97.9; O2SAT 94
[2024-09-28 20:00] VITALS: BP 127/83; TEMP 98.7; O2SAT 93
[2024-09-28 20:26] VITALS: BP 127/83; TEMP 98.7; O2SAT 93
[2024-09-29 06:58] LABS: BASOPHILS % (AUTO) 0.3 % (0.0-2.0); EOSINOPHILS # (AUTO) 0.4 K/uL (0.0-0.7); EOSINOPHILS % (AUTO) 3.7 % (0.0-6.0); HEMATOCRIT 39 % (39-51); HEMOGLOBIN 12.7 g/dL (13.5-17.5); LYMPHOCYTES # (AUTO) 2.2 K/uL (0.8-4.8); LYMPHOCYTES % (AUTO) 19.2 % (20.0-44.0); MEAN CORPUSCULAR HEMOGLOBIN 28 PG (26.0-33.0); MEAN CORPUSCULAR HGB CONC 32 g/dl (31.0-36.0); MEAN CORPUSCULAR VOLUME 87 fL (80-96); MONOCYTES # (AUTO) 1.3 K/uL (0.1-1.30); MONOCYTES % (AUTO) 10.8 % (2.0-12.0); NEUTROPHILS # (AUTO) 7.7 K/uL (1.8-8.9); PLATELET COUNT (AUTO) 227 K/uL (150-450); RED BLOOD CELL COUNT(AUTO) 4.49 MIL/uL (4.5-6.0); RED CELL DISTRIBUTION WIDTH 14.4 % (11.5-15.0); WHITE BLOOD COUNT (AUTO) 11.6 K/uL (4.3-11.0)
[2024-09-29 07:45] LABS: CALCIUM, SERUM 9.5 mg/dL (8.5-10.1); CREATININE 1.6 mg/dL (0.6-1.3); POTASSIUM 4.3 mmol/L (3.5-5.1)
[2024-09-29 08:00] VITALS: BP 165/88; TEMP 98.4; O2SAT 94
[2024-09-29 16:00] VITALS: BP 152/78; TEMP 99.5; O2SAT 94
[2024-09-29 20:00] VITALS: BP 142/86; TEMP 97.9; O2SAT 94
[2024-09-30 06:27] LABS: CALCIUM, SERUM 9.3 mg/dL (8.5-10.1); CREATININE 1.8 mg/dL (0.6-1.3)
[2024-09-30 06:47] LABS: BASOPHILS % (AUTO) 0.2 % (0.0-2.0); EOSINOPHILS # (AUTO) 0.6 K/uL (0.0-0.7); EOSINOPHILS % (AUTO) 4.4 % (0.0-6.0); HEMATOCRIT 38 % (39-51); HEMOGLOBIN 12.1 g/dL (13.5-17.5); LYMPHOCYTES # (AUTO) 2.1 K/uL (0.8-4.8); LYMPHOCYTES % (AUTO) 16.4 % (20.0-44.0); MEAN CORPUSCULAR HEMOGLOBIN 28 PG (26.0-33.0); MEAN CORPUSCULAR HGB CONC 32 g/dl (31.0-36.0); MEAN CORPUSCULAR VOLUME 87 fL (80-96); MONOCYTES # (AUTO) 1.3 K/uL (0.1-1.30); MONOCYTES % (AUTO) 10.3 % (2.0-12.0); NEUTROPHILS # (AUTO) 8.7 K/uL (1.8-8.9); NEUTROPHILS % (AUTO) 68.7 % (43.0-81.0); PLATELET COUNT (AUTO) 244 K/uL (150-450); WHITE BLOOD COUNT (AUTO) 12.7 K/uL (4.3-11.0)
[2024-09-30 08:00] VITALS: BP 97/85; TEMP 98.6; O2SAT 95
[2024-09-30 16:00] VITALS: BP 137/75; TEMP 98.2; O2SAT 95
[2024-09-30 21:07] VITALS: BP 127/77; TEMP 98.6; O2SAT 94
[2024-10-01 06:43] LABS: BASOPHILS % (AUTO) 0.4 % (0.0-2.0); EOSINOPHILS # (AUTO) 0.8 K/uL (0.0-0.7); EOSINOPHILS % (AUTO) 7.2 % (0.0-6.0); HEMATOCRIT 34 % (39-51); HEMOGLOBIN 11.5 g/dL (13.5-17.5); LYMPHOCYTES # (AUTO) 2.7 K/uL (0.8-4.8); LYMPHOCYTES % (AUTO) 25.1 % (20.0-44.0); MEAN CORPUSCULAR HEMOGLOBIN 29 PG (26.0-33.0); MEAN CORPUSCULAR HGB CONC 34 g/dl (31.0-36.0); MEAN CORPUSCULAR VOLUME 87 fL (80-96); MONOCYTES # (AUTO) 1.2 K/uL (0.1-1.30); NEUTROPHILS # (AUTO) 6.1 K/uL (1.8-8.9); NEUTROPHILS % (AUTO) 56.3 % (43.0-81.0); PLATELET COUNT (AUTO) 253 K/uL (150-450); RED CELL DISTRIBUTION WIDTH 14.1 % (11.5-15.0); WHITE BLOOD COUNT (AUTO) 10.8 K/uL (4.3-11.0)
[2024-10-01 07:02] LABS: CALCIUM, SERUM 8.3 mg/dL (8.5-10.1); CREATININE 1.7 mg/dL (0.6-1.3); POTASSIUM 3.6 mmol/L (3.5-5.1)
[2024-10-01 08:00] VITALS: BP 130/73; TEMP 97.3; O2SAT 96
[2024-10-01 08:57] VITALS: BP 130/73
[2024-10-01] MEDS ORDERED: HEPA50008 SQ (09:52)
== END 2024-10-01 17:15 | disposition home health service (06) | DRG 447 ==
LOC: ER 19:31 → MED 22:02
PROVIDERS: ADMIT Internal Medicine; ATTEND Internal Medicine
PROC: 0RG Upper Joints, Fusion (ICD-10-PCS; principal; 2024-09-26)
PROC: 0RG Upper Joints, Fusion (ICD-10-PCS; 2024-09-26)
DX: S22.081A Stable burst fracture of T11-T12 vertebra, initial encounter for closed fracture (principal); N17.0 Acute kidney failure with tubular necrosis; G95.29 Other cord compression; X58.XXXA Exposure to other specified factors, initial encounter; Y93.9 Activity, unspecified; Y92.89 Other specified places as the place of occurrence of the external cause; M48.07 Spinal stenosis, lumbosacral region; E11.65 Type 2 diabetes mellitus with hyperglycemia; N18.9 Chronic kidney disease, unspecified; I12.9 Hypertensive chronic kidney disease with stage 1 through stage 4 chronic kidney disease, or unspecified chronic kidney disease; N40.0 Benign prostatic hyperplasia without lower urinary tract symptoms; D64.9 Anemia, unspecified; E03.9 Hypothyroidism, unspecified; E11.22 Type 2 diabetes mellitus with diabetic chronic kidney disease; E78.5 Hyperlipidemia, unspecified; G89.29 Other chronic pain; G47.00 Insomnia, unspecified; Z79.4 Long term (current) use of insulin; Z79.84 Long term (current) use of oral hypoglycemic drugs; E11.42 Type 2 diabetes mellitus with diabetic polyneuropathy; E83.9 Disorder of mineral metabolism, unspecified; M43.17 Spondylolisthesis, lumbosacral region; M54.9 Dorsalgia, unspecified
CPT/HCPCS: 36415; 71045-TC; 72074-TC; 72146-TC; 72148-TC; 76770-TC; 80048-TC; 80053-TC; 80076-TC; 81001; 82550-TC; 82570-TC; 82962-TC; 83735-TC; 83970; 84100-TC; 84155; 84165; 84300-TC; 85025-TC; 85730-TC; 86850-TC; 87081-TC; 87086-TC; 93307-TC; 97110-TC; 97112-TC; 97116-TC; 97530-TC; A4223; A6253; A6403; C1713; C1751; C1769; G0378; J0330; J0690; J1100; J1171; J1308; J1644; J1815; J1885; J2270; J2405; J2704; J2765; J3010; J3475; J3480; J3490; J7030; J7050; J7060; J7120; P9045

== ENCOUNTER 2024-12-25 11:30 | Emergency (ER) | payer MEDICARE, OTHER ==
[~2024-12-25] VITALS: Ht 157.5 cm; Wt 78.0 kg
[~2024-12-25 11:30] MED LIST changes: +ACET325T53 PO; -AMLO-212 PO; +AMLO-213 PO; +BUSP10TA3 PO; -BUSP7.5T7 PO; +CALC200V NS; +CLON0.1T PO; +DICL100G34 TP; +ERGO500093 PO; +HEPA50008 SQ; +HYDR-4303 PO; +POLY17PO4 PO; +QUET25TA PO; +SENN8.6T19 PO; +TIZA-180 PO; -TRAM50TA2 PO
[2024-12-25 15:37] VITALS: BP 138/77; TEMP 98.6; O2SAT 95
== END 2024-12-25 15:38 ==
LOC: ER 11:33
DX: S09.8XXA Other specified injuries of head, initial encounter (principal); I11.9 Hypertensive heart disease without heart failure; E11.43 Type 2 diabetes mellitus with diabetic autonomic (poly)neuropathy; G90.9 Disorder of the autonomic nervous system, unspecified; E78.5 Hyperlipidemia, unspecified; E03.9 Hypothyroidism, unspecified; K21.9 Gastro-esophageal reflux disease without esophagitis; F32.A Depression, unspecified; G93.89 Other specified disorders of brain; N40.0 Benign prostatic hyperplasia without lower urinary tract symptoms; Z79.84 Long term (current) use of oral hypoglycemic drugs; Z79.899 Other long term (current) drug therapy; W18.39XA Other fall on same level, initial encounter; Y93.89 Activity, other specified; Y92.89 Other specified places as the place of occurrence of the external cause; Y99.8 Other external cause status
CPT/HCPCS: 70450-TC; 70486-TC

== ENCOUNTER 2025-01-23 18:17 | Emergency (ER) | payer MEDICARE, OTHER ==
[~2025-01-23] VITALS: Ht 157.5 cm; Wt 79.4 kg
[2025-01-23 18:30] VITALS: BP 132/88; TEMP 98.2; O2SAT 95
[2025-01-23] MEDS ORDERED: diphenhydrAMINE HCL ELIX 25 MG/10 ML UDC ONE (18:50)
[2025-01-23 18:57] LABS: PLATELET COUNT (AUTO) 250 K/uL (150-450); RED BLOOD CELL COUNT(AUTO) 4.01 MIL/uL (4.5-6.0); RED CELL DISTRIBUTION WIDTH 14.9 % (11.5-15.0); WHITE BLOOD COUNT (AUTO) 7.7 K/uL (4.3-11.0)
[2025-01-23] MEDS: IV NS 0.9% 1,000 ML BAG IV ONE (18:57)
[2025-01-23] MEDS: diphenhydrAMINE HCL ELIX 25 MG/10 ML UDC PO ONE (18:58)
[2025-01-23 19:05] LABS: CALCIUM, SERUM 8.8 mg/dL (8.5-10.1); CREATININE 1.8 mg/dL (0.6-1.3); SODIUM SERUM 135 mmol/L (136-145); UREA NITROGEN, BLOOD 40 mg/dL (7-18)
[2025-01-23 19:11] LABS: ASPARTATE AMINOTRANSFERASE 20 U/L (15-37); TOTAL PROTEIN, SERUM 7.9 g/dL (6.4-8.2)
[2025-01-23] MEDS ORDERED: DIPH25CA83 PO (21:32)
[2025-01-23] MEDS ORDERED: PERM60CR4 TP (21:32)
== END 2025-01-23 21:31 | disposition admitted as inpatient to this hospital (09) ==
LOC: ER 18:20
DX: L29.9 Pruritus, unspecified (principal); I11.9 Hypertensive heart disease without heart failure; N40.0 Benign prostatic hyperplasia without lower urinary tract symptoms; E11.43 Type 2 diabetes mellitus with diabetic autonomic (poly)neuropathy; E03.9 Hypothyroidism, unspecified; F32.A Depression, unspecified; E78.5 Hyperlipidemia, unspecified; G90.9 Disorder of the autonomic nervous system, unspecified; Z79.84 Long term (current) use of oral hypoglycemic drugs; Z79.899 Other long term (current) drug therapy
CPT/HCPCS: 99283; 96360; 85025; 80048; 80076; 36415; Q0163; J7030; J1200